=== PATIENT | male | born 1975 | race Caucasian/White ===

== ENCOUNTER → 2018-11-03 15:42 | Outpatient (CLI) | payer BC, SELFPAY ==
[2018-11-03 16:02] LABS: Appearance Urine UA CLEAR; Bilirubin Urine UA NEGATIVE (NEGATIVE); Color Urine UA YELLOW; Glucose Urine UA NEGATIVE (Negative); Ketones Urine UA NEGATIVE (NEGATIVE); Leukocyte Esterase Urine UA NEGATIVE (NEGATIVE); Nitrite Urine UA NEGATIVE (Negative); Occult Blood Urine UA NEGATIVE (Negative); Protein Urine UA NEGATIVE (Negative); Specific Gravity Urine UA 1.015 (1.000-1.035); Urobilinogen Urine UA 0.2 E.U./dL (0.2); pH Urine UA 5.5 (4.5-8.0)
== END ==
PROVIDERS: PCP Nurse Practitioner; Visit Provider Specialist
DX: N45.1 Epididymitis (principal)
CPT/HCPCS: 81003

== ENCOUNTER → 2018-11-11 10:37 | Outpatient (CLI) | payer BC, SELFPAY ==
--- NOTE | 2018-11-11 10:48 | DI.CT.S_ITS ---
PROCEDURE: CT PEL WO CON INDICATIONS: Bilateral groin pain left greater than right rule out hernia TECHNIQUE: After the administration of oral contrast, 5 mm thick sections acquired from the iliac crests to the symphysis. 5 mm coronal and sagittal reformats were then performed. For radiation dose reduction, the following was used: automated exposure control, adjustment of mA and/or kV according to patient size. Please note patient did not perform Valsalva during study. COMPARISON: None. FINDINGS: Image quality: Excellent. Peritoneum and bowel: Visualized bowel loops demonstrate normal wall thickness and caliber. There is colonic diverticulosis without acute diverticulitis. No free fluid or air. Genitourinary: Bladder wall thickness is normal. There are nonspecific coarse calcifications within the left aspect of the prostate. Nodes and vessels: No iliac, pelvic, or inguinal adenopathy by size criteria. Iliac vessels demonstrate normal size. Bones: No suspicious bony lesions. Pelvic ring and hip joints appear intact. Miscellaneous: No inguinal or femoral hernias identified. IMPRESSION: 1. No inguinal or femoral hernia identified. Evaluation slightly limited by absence of Valsalva maneuver. 2. No definite acute abnormality identified to correlate with patient's pain symptoms. Dictated by: Danny Farnsworth M.D. on 11/11/2018 at 13:38 Approved by: Danny Farnsworth M.D. on 11/11/2018 at 13:41
== END ==
PROVIDERS: PCP Nurse Practitioner; Visit Provider Specialist
DX: R10.32 Left lower quadrant pain (principal)
CPT/HCPCS: 72192

== ENCOUNTER → 2018-11-18 07:43 | Outpatient (CLI) | payer BC, SELFPAY ==
--- NOTE | 2018-11-18 07:45 | DI.US.S_ITS ---
PROCEDURE: US SCROTUM INDICATIONS: TESTICULAR PAIN TECHNIQUE: Real-time scanning was performed of the scrotum and testicles, with image documentation. Color and pulse Doppler interrogation was performed of both testicles. COMPARISON: None. FINDINGS: Right: Testicle is normal in size at 4.2 x 3.1 x 2.3 cm, and homogenous in echotexture. Epididymis is normal in overall size and morphology. No hydrocele or varicoceles. Overlying scrotal skin is normal in thickness. Left: Testicle is normal in size at 4.4 x 2.9 x 2.3 cm, and homogeneous in echotexture. Epididymis is normal in overall size and morphology. There is a small left-sided hydrocele. A small to moderate left-sided varicocele is seen. Overlying scrotal skin is normal in thickness. Doppler: Color and pulse Doppler demonstrate normal arterial flow in both testicles. However, there is increased blood flow seen within the left testicle compared to the right. IMPRESSION: Small moderate left-sided varicocele. The vascular flow to each testicle is considered to be within normal limits. However, the vascular flow to the left testicle is more prominent than to the right testicle. Dictated by: Nuno Dill M.D. on 11/18/2018 at 9:05 Approved by: Nuno Dill M.D. on 11/18/2018 at 9:08
== END ==
PROVIDERS: PCP Nurse Practitioner; Visit Provider Nurse Practitioner
DX: I86.1 Scrotal varices (principal)
CPT/HCPCS: 76870

== ENCOUNTER → 2019-01-22 07:40 | Outpatient (CLI) | payer BC, SELFPAY ==
--- NOTE | 2019-01-22 07:43 | DI.MRI.S_ITS ---
PROCEDURE: MR LUMBAR SPINE WO CON INDICATIONS: Back Pain TECHNIQUE: Noncontrast sagittal T1 spin echo and T2 fast echo, sagittal STIR, axial T1 and T2 fast spin echo through the lumbar spine. In cases with scoliosis, additional coronal T2 fast spin echo may be performed. COMPARISON: None. FINDINGS: Image quality: Excellent. Alignment and Curvature: There is normal bony alignment. Bone Marrow: Marrow is of normal overall signal. No acute vertebral body compression fractures. Spinal Cord: Conus medullaris terminates at the L1 level. Visualized cord demonstrates normal signal and size. Paraspinous Soft Tissues: No paravertebral masses. L1-L2: Loss of disc signal. Mild, diffuse disc bulge. No central stenosis. No neural foraminal narrowing. No neural compression. L2-L3: Loss of disc signal and height. Mild, diffuse disc bulge. No central stenosis. No neural foraminal narrowing. No neural compression. Fissure noted in the posterior annulus. L3-L4: Loss of disc signal. Mild, diffuse disc bulge. No central stenosis. Mild bilateral neural foraminal narrowing. No neural compression. Fissure noted in the posterior annulus. L4-L5: Loss of disc signal. Mild, diffuse disc bulge. No central stenosis. Mild bilateral neural foraminal narrowing. No neural compression. L5-S1: Loss of disc signal. Mild, diffuse disc bulge. No central stenosis. Mild left neural foraminal narrowing. No neural compression. IMPRESSION: 1. Multilevel degenerative disc disease. 2. No central stenosis. 3. Mild bilateral L3-L4 and L4-L5 neural foraminal narrowing. Mild left L5-S1 neural foraminal narrowing. 4. No neural compression. 5. L2-L3 and L3-L4 disc annular fissures. Dictated by: Christina Johansen MD, PhD on 01/22/2019 at 12:25 Approved by: Christina Johansen MD, PhD on 01/22/2019 at 12:36
== END ==
PROVIDERS: PCP Nurse Practitioner; Visit Provider Nurse Practitioner
DX: M54.9 Dorsalgia, unspecified (principal); M51.36 Other intervertebral disc degeneration, lumbar region; M48.061 Spinal stenosis, lumbar region without neurogenic claudication; M79.2 Neuralgia and neuritis, unspecified
CPT/HCPCS: 72148

== ENCOUNTER → 2019-02-02 11:21 | Outpatient (CLI) | payer BC, SELFPAY ==
[2019-02-02 13:21] LABS: Add Manual Diff / Slide Review NO; Basophils Absolute Auto 100 /uL (0-100); Eosinophils Absolute Auto 100 /uL (0-450); Eosinophils Percent Auto 1.1 % (2-4); Hematocrit 41.6 % (41-53); Hemoglobin 14.7 g/dL (13.5-17.5); Lymphocytes Absolute Auto 2900 /uL (1100-4500); Lymphocytes Percent Auto 37.6 % (25-40); Mean Corpuscular HGB Conc 35.5 % (30-36); Mean Corpuscular Hemoglobin 31.5 PG (26-34); Mean Corpuscular Volume 88.8 fL (80-100); Monocytes Absolute Auto 600 /uL (0-900); Monocytes Percent Auto 7.3 % (3-14); Neutrophils Absolute Auto 4100 /uL (1500-7000); Platelet Count 205 X10^3/uL (150-400); Red Blood Cell Count 4.68 X10^6/uL (4.5-5.9); Red Cell Distribution Width 12.7 % (11.6-14.8); White Blood Cell Count 7.7 X10^3/uL (4.5-11.0)
[2019-02-02 13:50] LABS: Alanine Aminotransferase 35 IU/L (<50); Albumin Globulin Ratio 1.9 (1.0-2.8); Alkaline Phosphatase 43 U/L (38-126); Aspartate Aminotransferase 28 IU/L (17-59); BUN Creatinine Ratio 17.1 (6-22); Bilirubin Total 0.7 mg/dL (0.2-1.3); Blood Urea Nitrogen 12 mg/dL (9-20); Calcium 9.9 mg/dL (8.4-10.2); Carbon Dioxide 29 mmol/L (22-32); Chloride 102 mmol/L (98-107); Cholesterol 264 mg/dL (140-199); Estimated Glomerular Filt Rate > 60.0 mL/min (>60); Globulin 2.6 g/dL (1.7-4.1); Glucose 89 mg/dL (70-100); HDL Cholesterol 43 mg/dL (40-60); HEMOLYSIS < 15 (0-50); LDL Cholesterol Calculated 179 mg/dL (<100); Potassium 4.4 mmol/L (3.4-5.1); Sodium 141 mmol/L (137-145); Total Protein 7.6 g/dL (6.3-8.2); Triglycerides 211 mg/dL (35-150)
[2019-02-02 14:17] LABS: TSH w/ Reflex to FT4 1.91 uIU/mL (0.47-4.68)
[2019-02-02 14:17] LABS: Prostate Specific Antigen Scrn 1.29 ng/mL (0.1-4.0)
== END ==
PROVIDERS: PCP Nurse Practitioner; Visit Provider Nurse Practitioner
DX: Z00.00 Encounter for general adult medical examination without abnormal findings (principal); Z12.5 Encounter for screening for malignant neoplasm of prostate
CPT/HCPCS: 36415; 80053; 80061; 84443; 85025; G0103

== ENCOUNTER → 2019-03-05 16:12 | Outpatient (CLI) | payer BC, SELFPAY ==
--- NOTE | 2019-03-05 16:13 | DI.MRI.S_ITS ---
PROCEDURE: MR THORACIC SPINE WO CON INDICATIONS: Back Pain TECHNIQUE: Noncontrast sagittal T1 spine echo and T2 fast spin echo, sagittal STIR, axial T1 and T2 fast spin echo through the thoracic spine. COMPARISON: [facility], , MR LUMBAR SPINE WO CON, 01/22/2019, 7:59. FINDINGS: Image quality: Excellent. Alignment and Curvature: There is normal bony alignment. Bone Marrow: Marrow is of normal overall signal. No acute vertebral body compression fractures. Spinal Cord: Visualized spinal cord is normal in size and signal along the thoracic spine but a portion of the low cervical spine is included on this study and there is moderately severe spinal stenosis at C5-6, C6-7, and to a mild degree at C7-T1. Along the thoracic spine there is a mild degree of degenerative disc disease best seen at the mid thoracic spine without associated spinal or foraminal stenosis. A disc herniation is not seen. Paraspinous Soft Tissues: No paravertebral masses. Miscellaneous: On axial images, central canal and foramina appear widely patent at all scanned levels. IMPRESSION: As noted above a portion of the low cervical spine was included on the study and there is moderately severe spinal stenosis from C5-6 through C6-7. Given the degree of degenerative change is found in this area a dedicated cervical MR study may be warranted. Along the thoracic spine there is a mild degree of degenerative disc disease as indicated by mild disc height reduction and disc desiccation but without associated significant spinal or foraminal stenosis. No disc herniation is found. Dictated by: Ten Abel M.D. on 03/08/2019 at 8:24 Approved by: Ten Abel M.D. on 03/08/2019 at 8:31
== END ==
PROVIDERS: PCP Nurse Practitioner; Visit Provider Nurse Practitioner
DX: M54.9 Dorsalgia, unspecified (principal); M51.34 Other intervertebral disc degeneration, thoracic region; M48.02 Spinal stenosis, cervical region; M48.03 Spinal stenosis, cervicothoracic region; M79.2 Neuralgia and neuritis, unspecified
CPT/HCPCS: 72146

== ENCOUNTER → 2019-04-19 14:02 | Outpatient (CLI) | payer BC, SELFPAY ==
--- NOTE | 2019-04-19 14:04 | DI.MRI.S_ITS ---
PROCEDURE: MR CERVICAL SPINE WO CON INDICATIONS: neck, shoulder, scapular, arm, and hand pain, finger numbnes TECHNIQUE: Noncontrast sagittal T1 spin echo and T2 fast spin echo, sagittal STIR, foraminal oblique sagittal T2 fast spin echo, and axial gradient echo or T2 fast spin echo through the cervical spine. COMPARISON: None. FINDINGS: Image quality: Excellent. Alignment and Curvature: There is normal bony alignment. Bone Marrow: Marrow demonstrates normal overall signal. Spinal Cord: Visualized spinal cord has normal size and signal. No cerebellar tonsillar herniation. Paraspinous Soft Tissues: No paravertebral masses. Prevertebral soft tissues are normal in thickness. C2-C3: Normal appearance except for a minimal midline posterior disc bulge without spinal or foraminal stenosis. C3-C4: The degenerative changes at this level are mild, the AP dimension of the spinal canal is congenitally narrowed with effacement of CSF from the anterior thecal sac but without cord distortion. No foraminal stenosis, only very mild anterior spinal stenosis. C4-C5: Moderately severe degenerative changes with a broad-based posterior transverse disc bulge effacing CSF from the anterior thecal sac and mildly flattening the anterior cord margin. Facet and uncovertebral osteoarthritis is moderate on the left and moderately severe on the right with potential for significant right-sided C5 nerve root impingement. C5-C6: Moderately severe to severe degenerative disc disease with narrowing of the AP dimension of the spinal canal, by a posterior broad-based transverse disc bulge with accentuation of bulging at the midline. The anterior cord is mildly flattened, and concave in its contour adjacent to the focal disc bulge noted above. Asymmetric right greater than left facet and uncovertebral osteoarthritis produces moderately severe right and mild to moderate left foraminal stenosis. Asymmetric impingement on the course of the right C6 nerve root would be expected. C6-C7: Moderately severe degenerative disc disease, posterior transverse broad-based mild disc bulge. Facet osteoarthritis with uncovertebral degeneration is greater on the left than the right mild to moderate degree of left-sided foraminal stenosis and potential for impingement on the course of the left C7 nerve root. C7-T1: Chronic degenerative disc disease is mild at this level, foraminal stenosis is not present. No significant spinal or foraminal nerve root impingement. IMPRESSION: Multilevel degenerative disc disease and facet osteoarthritis with uncovertebral degenerative change also contributing to the presence of both symmetric and asymmetric foraminal stenosis and spinal stenosis as discussed in detail by level and the body of the report above. No disc herniation is found, no prior trauma is seen. The AP dimension of the spinal canal is congenitally mildly narrowed contributing to the spinal stenosis noted. Dictated by: Ten Abel M.D. on 04/19/2019 at 15:58 Approved by: Ten Abel M.D. on 04/19/2019 at 16:03
== END ==
PROVIDERS: PCP Nurse Practitioner; Visit Provider Nurse Practitioner
DX: M50.022 Cervical disc disorder at C5-C6 level with myelopathy (principal); M48.02 Spinal stenosis, cervical region; M47.12 Other spondylosis with myelopathy, cervical region; R20.0 Anesthesia of skin; M25.511 Pain in right shoulder; M25.512 Pain in left shoulder; M89.8X1 Other specified disorders of bone, shoulder
CPT/HCPCS: 72141

== ENCOUNTER → 2020-04-07 09:58 | Outpatient (CLI) | payer BC, SELFPAY ==
[2020-04-07 10:46] LABS: Add Manual Diff / Slide Review NO; Basophils Absolute Auto 0 /uL (0-100); Basophils Percent Auto 0.6 % (0-2); Eosinophils Absolute Auto 100 /uL (0-450); Eosinophils Percent Auto 0.9 % (2-4); Hematocrit 41.2 % (41-53); Hemoglobin 14.1 g/dL (13.5-17.5); Lymphocytes Absolute Auto 2100 /uL (1100-4500); Lymphocytes Percent Auto 37.3 % (25-40); Mean Corpuscular HGB Conc 34.2 % (30-36); Mean Corpuscular Hemoglobin 30.2 PG (26-34); Mean Corpuscular Volume 88.3 fL (80-100); Monocytes Absolute Auto 400 /uL (0-900); Monocytes Percent Auto 6.5 % (3-14); Neutrophils Absolute Auto 3100 /uL (1500-7000); Neutrophils Percent Auto 54.7 % (50-75); Platelet Count 181 X10^3/uL (150-400); Red Blood Cell Count 4.66 X10^6/uL (4.5-5.9); Red Cell Distribution Width 12.7 % (11.6-14.8); White Blood Cell Count 5.7 X10^3/uL (4.5-11.0)
[2020-04-07 11:04] LABS: Alanine Aminotransferase 29 IU/L (<50); Albumin 4.5 g/dL (3.5-5.0); Albumin Globulin Ratio 1.6 (1.0-2.8); Alkaline Phosphatase 48 U/L (38-126); Aspartate Aminotransferase 25 IU/L (17-59); BUN Creatinine Ratio 16.9 (6-22); Bilirubin Total 0.6 mg/dL (0.2-1.3); Blood Urea Nitrogen 11 mg/dL (9-20); Calcium 9.2 mg/dL (8.4-10.2); Carbon Dioxide 29 mmol/L (22-32); Chloride 103 mmol/L (98-107); Cholesterol 274 mg/dL (140-199); Estimated Glomerular Filt Rate > 60.0 mL/min (>60); Globulin 2.8 g/dL (1.7-4.1); Glucose 97 mg/dL (70-100); HDL Cholesterol 43 mg/dL (40-60); HEMOLYSIS < 15 (0-50); LDL Cholesterol Calculated 174 mg/dL (<100); Potassium 4.1 mmol/L (3.4-5.1); Sodium 137 mmol/L (137-145); Total Protein 7.3 g/dL (6.3-8.2); Triglycerides 283 mg/dL (35-150)
[2020-04-07 11:17] LABS: Free T3, Triiodothyronine Free 3.73 pg/mL (2.77-5.27); Free T4, Direct Thyroxine 0.71 ng/dL (0.78-2.19)
[2020-04-07 11:31] LABS: Thyroid Stimulating Hormone 1.62 uIU/mL (0.47-4.68)
== END ==
PROVIDERS: PCP Nurse Practitioner; Referring Provider Nurse Practitioner; Visit Provider Nurse Practitioner
DX: Z00.00 Encounter for general adult medical examination without abnormal findings (principal); E66.01 Morbid (severe) obesity due to excess calories; E78.1 Pure hyperglyceridemia; E78.5 Hyperlipidemia, unspecified; F41.8 Other specified anxiety disorders; I10 Essential (primary) hypertension
CPT/HCPCS: 36415; 80053; 80061; 84439; 84443; 84481; 85025; 86900; 86901

== ENCOUNTER → 2022-10-23 07:50 | Outpatient (CLI) | payer OTHER, SELFPAY ==
[2022-10-23 08:42] LABS: Add Manual Diff / Slide Review NO; Basophils Absolute Auto 0 /uL (0-100); Basophils Percent Auto 0.4 % (0-2); Eosinophils Absolute Auto 100 /uL (0-450); Hematocrit 40.1 % (41-53); Hemoglobin 14.3 g/dL (13.5-17.5); Lymphocytes Absolute Auto 2500 /uL (1100-4500); Lymphocytes Percent Auto 38.3 % (25-40); Mean Corpuscular HGB Conc 35.5 % (30-36); Mean Corpuscular Hemoglobin 31.4 PG (26-34); Mean Corpuscular Volume 88.5 fL (80-100); Monocytes Absolute Auto 400 /uL (0-900); Neutrophils Absolute Auto 3500 /uL (1500-7000); Neutrophils Percent Auto 54.3 % (50-75); Platelet Count 180 X10^3/uL (150-400); Red Blood Cell Count 4.53 X10^6/uL (4.5-5.9); Red Cell Distribution Width 12.6 % (11.6-14.8); White Blood Cell Count 6.5 X10^3/uL (4.5-11.0)
[2022-10-23 09:12] LABS: Alanine Aminotransferase 24 IU/L (<50); Albumin 4.7 g/dL (3.5-5.0); Albumin Globulin Ratio 1.7 (1.0-2.8); Alkaline Phosphatase 51 U/L (38-126); Aspartate Aminotransferase 28 IU/L (17-59); BUN Creatinine Ratio 19.7 (6-22); Bilirubin Total 0.9 mg/dL (0.2-1.3); Blood Urea Nitrogen 13 mg/dL (9-20); Calcium 9.1 mg/dL (8.4-10.2); Carbon Dioxide 24 mmol/L (22-32); Chloride 106 mmol/L (98-107); Cholesterol 222 mg/dL (140-199); Estimated Glomerular Filt Rate > 60 mL/min (>60); Globulin 2.8 g/dL (1.7-4.1); Glucose 98 mg/dL (70-100); HDL Cholesterol 39 mg/dL (40-60); HEMOLYSIS 36 (0-50); LDL Cholesterol Calculated 135 mg/dL (<100); Potassium 4.2 mmol/L (3.4-5.1); Sodium 138 mmol/L (137-145); Total Protein 7.5 g/dL (6.3-8.2); Triglycerides 238 mg/dL (35-150)
[2022-10-23 09:24] LABS: Free T3, Triiodothyronine Free 4.41 pg/mL (2.77-5.27)
[2022-10-23 09:38] LABS: Thyroid Stimulating Hormone 2.35 uIU/mL (0.47-4.68)
[2022-10-23 09:45] LABS: Creatinine Urine Random 145.2 mg/dL
[2022-10-23 09:49] LABS: Microalbumi Creatinin Ratio Ur 6.1 ug/mg CR (<30); Microalbumin Urine Random 0.9 mg/dL (0-1.6)
[2022-10-23 13:36] LABS: HIV 1 & 2 Ab/Ag 4th Gen Combo NEGATIVE (NEGATIVE); Hep C Virus Ab w/Reflex Quant NEGATIVE s/c (NEGATIVE)
== END ==
PROVIDERS: PCP Nurse Practitioner; Referring Provider Nurse Practitioner; Visit Provider Nurse Practitioner
DX: Z00.00 Encounter for general adult medical examination without abnormal findings (principal); Z11.4 Encounter for screening for human immunodeficiency virus [HIV]; Z11.59 Encounter for screening for other viral diseases
CPT/HCPCS: 36415; 80053; 80061; 82043; 82570; 84439; 84443; 84481; 85025; 86803; 87389

== ENCOUNTER → 2024-03-23 15:06 | Outpatient (CLI) | payer BC, SELFPAY ==
[2024-03-23 16:19] LABS: Hematocrit 45.1 % (41-53); Hemoglobin 15.3 g/dL (13.5-17.5); Mean Corpuscular Hemoglobin 30.8 PG (26-34); Mean Corpuscular Volume 90.4 fL (80-100); Platelet Count 219 X10^3/uL (150-400); Red Blood Cell Count 4.98 X10^6/uL (4.5-5.9); Red Cell Distribution Width 12.9 % (11.6-14.8); White Blood Cell Count 9.2 X10^3/uL (4.5-11.0)
[2024-03-23 16:27] LABS: Hemoglobin A1C% w Est Avg Glu 5.3 % (4.0-6.0)
[2024-03-23 16:38] LABS: Alanine Aminotransferase 54 IU/L (<50); Albumin 4.8 g/dL (3.5-5.0); Albumin Globulin Ratio 1.5 (1.0-2.8); Alkaline Phosphatase 53 U/L (38-126); Aspartate Aminotransferase 43 IU/L (17-59); BUN Creatinine Ratio 16.1 (6-22); Bilirubin Total 0.9 mg/dL (0.2-1.3); Blood Urea Nitrogen 14 mg/dL (9-20); Calcium 9.8 mg/dL (8.4-10.2); Carbon Dioxide 29 mmol/L (22-32); Chloride 102 mmol/L (98-107); Cholesterol 312 mg/dL (140-199); Estimated Glomerular Filt Rate > 60 mL/min (>60); Globulin 3.2 g/dL (1.7-4.1); Glucose 83 mg/dL (70-100); HDL Cholesterol 63 mg/dL (40-60); HEMOLYSIS < 15 (0-50); LDL Cholesterol Calculated 181 mg/dL (<100); Potassium 4.5 mmol/L (3.4-5.1); Sodium 137 mmol/L (137-145); Triglycerides 338 mg/dL (35-150)
== END ==
LOC: LAB 15:07
PROVIDERS: PCP Family Medicine; Referring Provider Family Medicine; Visit Provider Family Medicine
DX: E66.01 Morbid (severe) obesity due to excess calories (principal); E78.2 Mixed hyperlipidemia; Z68.41 Body mass index [BMI] 40.0-44.9, adult
CPT/HCPCS: 36415; 80053; 80061; 83036; 85027

== ENCOUNTER → 2024-04-30 09:49 | Day surgery (SDC) | payer BC, SELFPAY ==
[2024-04-30] MEDS: LACTATED RINGERS 1,000 ML 100 ML IV (10:28)
[2024-04-30 10:41] VITALS: BP 145/92; PULSE 58; RESP 16; TEMP 36.6; O2SAT 99
--- NOTE | 2024-04-30 10:54 | PM.HP.IH.1 ---
History of Present Illness History of Present Illness Date Patient Seen: 04/30/24 Time Patient Seen: 10:55 Chief complaint: SDC Narrative: 49-year-old white male presents for initial screening colonoscopy. No changes in bowel habits. [facility] Medical History (Updated 04/30/24 @ 10:56 by Javier Junior MD) Colon cancer screening (04/30/24) Mixed hyperlipidemia Bilateral arm pain Segmental and somatic dysfunction of sacral region Pelvic somatic dysfunction Segmental and somatic dysfunction of abdomen and other regions Lumbar region somatic dysfunction Segmental and somatic dysfunction of thoracic region Cervical somatic dysfunction Cervical radiculopathy Low back pain with sciatica Cervicalgia Psoriasis Shoulder pain Foot pain Encounter for smoking cessation counseling History of tobacco abuse Obesity (BMI 35.0-39.9 without comorbidity) Surgical History H/O cervical spine surgery Anesthesia [place] teeth removed (~1995) Family History Grandfather History of heart disease Hypertension Grandmother Cancer Diabetes mellitus History of heart disease Hypertension Social History marital status: household members: spouse and family occupational status: employed Smoking Status: Former smoker alcohol intake: current substance use type: does not use Meds Home Medications and Allergies Home Medications Medication Instructions Recorded Confirmed Type acetaminophen 500 mg tablet 500 mg PO TID PRN 09/23/19 03/23/24 History (Acetaminophen Extra Strength) cholecalciferol (vitamin D3) 125 12.5 mcg PO DAILY 04/07/20 03/23/24 History mcg/mL (5,000 unit/mL) oral drops multivitamin 1 tab PO DAILY 04/07/20 03/23/24 History omega-3 fatty acids 1,000 mg 1,000 mg PO DAILY 04/07/20 03/23/24 History capsule (Fish Oil Concentrate) CBD/THC PO 10/30/22 03/23/24 History gabapentin 300 mg capsule See Rx Instructions .Route 03/23/24 03/23/24 Rx .COMPLEX #90 caps methocarbamol 750 mg tablet 750 mg PO Q8H PRN muscle spasms 03/23/24 03/23/24 Rx #90 tabs rosuvastatin 20 mg tablet (Crestor) 20 mg PO DAILY #90 tabs 03/30/24 03/30/24 Rx sodium,potassium,mag sulfates 17.5 See Rx Instructions PO .COMPLEX 03/31/24 Rx gram-3.13 gram-1.6 gram oral soln #354 mL (Suprep Bowel Prep Kit) Allergies Allergy/AdvReac Type Severity Reaction Status Date / Time Penicillins Allergy Verified 04/30/24 10:25 Review of Systems Review of Systems ROS: Yes All systems reviewed with the patient and are negative except as otherwise documented Exam Vital Signs (past 8 hours): - 04/30/24 10:41 Temperature 98 F Pulse Rate 58 L Respiratory Rate 16 Blood Pressure 145/92 H Pulse Oximetry 99 Oxygen Delivery Method Room Air Oxygen Delivery Method Room Air Narrative Exam Narrative: Gen: NAD, sitting comfortably in bed, appears well HEENT: Sclera are anicteric, head is normocephalic and atraumatic, trachea is midline. CV: RRR, no JVD Resp: clear to auscultation bilaterally, equal chest wall movement bilaterally Abd: soft, nontender, normoactive bowel sounds Ext: no edema, full range of motion Neuro: Cranial nerves II-XII grossly intact, no focal deficits Skin: No erythema or ecchymosis Assessment & Plan Assessment and plan (1) Colon cancer screening: Status: Acute Assessment & Plan narrative: Patient presents for colonoscopy Risks, benefits, alternatives to colonoscopy explained, including but not limited to bowel perforation or other serious complication requiring surgery at less than 1 in 5000 colonoscopies, abdominal pain, cramping or bleeding and less than 1% of colonoscopies, and the chances that we find a diagnosis that would require further intervention of about 2%. Patient agrees to proceed. Time-Based Coding :: [TOTAL MINUTES] spent with patient and on the chart (including review of chart, obtaining history, exam, reviewing outside data, placing orders, documenting exam and treatment plan, and counseling patient) on [DATE]. 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
--- NOTE | 2024-04-30 11:14 | P.OP.COLON_ITS ---
Operative Date/Time/Diagnoses Date of procedure: 04/30/24 Time of procedure: 11:14 Pre-op diagnosis: Colon screening Post-op diagnosis: same Procedure & Clinicians Study performed: Colonoscopy Same procedure as scheduled: Yes Indications: Colon screening Surgeon: Javier Junior Procedure Notes SCOAP/Timeout: Performed Procedure in detail: Time-out was performed. Mac was induced. Patient was placed in left lateral d ecubitus position. The perineum was inspected without any gross abnormality. Lubricated pediatric colonoscope was inserted and advanced to the cecum. The terminal ileum was intubated. The colonoscope was withdrawn slowly inspecting the circumference of the colon. Very small polyps may have been missed, prep quality was adequate. Retroflexed view of the rectum showed small, non prolapsed nonbleeding internal hemorrhoids. The scope was withdrawn the patient was taken to PACU in good condition. Scope withdrawal time: 6 Sedation minutes: 12 Specimen(s): none sent Complications: none Post-procedure Recommendations: Colonoscopy in 10 years Follow up: as needed Disposition: PACU
[2024-04-30 11:16] VITALS: BP 92/61; PULSE 63; RESP 14; TEMP 36.2; O2SAT 97
[2024-04-30 11:24] VITALS: BP 109/72; PULSE 62; RESP 12; O2SAT 96
[2024-04-30 11:28] VITALS: BP 117/72; PULSE 62; RESP 16; TEMP 36.7; O2SAT 97
[2024-04-30 11:31] VITALS: BP 107/71; PULSE 58; RESP 12; O2SAT 98
== END | disposition home or self-care (01) ==
PROVIDERS: PCP Family Medicine; Referring Provider Surgery; Visit Provider Surgery
PROC: 0DJD8ZZ Inspection of Lower Intestinal Tract, Via Natural or Artificial Opening Endoscopic (ICD-10-PCS; CPT 45378; principal; 2024-04-30 11:15)
DX: Z12.11 Encounter for screening for malignant neoplasm of colon (principal); K64.8 Other hemorrhoids
CPT/HCPCS: 45378; J2704

== ENCOUNTER → 2024-06-25 09:42 | Outpatient (CLI) | payer BC, SELFPAY ==
--- NOTE | 2024-06-25 09:45 | DI.RAD.S_ITS ---
PROCEDURE: XR KNEE LT 3V INDICATIONS: bilat pain TECHNIQUE: 3 views of the knee were acquired. COMPARISON: None. FINDINGS: Bones: No fractures or dislocations. No suspicious bony lesions. Moderate medial and mild to moderate lateral tibiofemoral and moderate patellofemoral compartment narrowing with associated osteophytosis. Soft tissues: Trace joint effusion. No suspicious soft tissue calcifications. IMPRESSION: KL grade 2 tricompartmental osteoarthritis without evidence of acute osseous abnormality. Trace joint effusion. Dictated by: Dalton Monroe M.D. on 06/25/2024 at 22:14 Approved by: Dalton Monroe M.D. on 06/25/2024 at 22:36
--- NOTE | 2024-06-25 09:45 | DI.RAD.S_ITS ---
PROCEDURE: XR KNEE RT 3V INDICATIONS: rt knee pain TECHNIQUE: 3 views of the knee were acquired. COMPARISON: None. FINDINGS: Bones: No fractures or dislocations. No suspicious bony lesions. Moderate medial and lateral tibiofemoral and moderate to severe patellofemoral compartment narrowing with associated osteophytosis. Soft tissues: No joint effusion. No suspicious soft tissue calcifications. IMPRESSION: KL grade 2 tricompartmental osteoarthritis without evidence of acute osseous abnormality. Dictated by: Dalton Monroe M.D. on 06/25/2024 at 22:40 Approved by: Dalton Monroe M.D. on 06/25/2024 at 22:43
--- NOTE | 2024-06-25 09:45 | DI.RAD.S_ITS ---
PROCEDURE: XR SHOULDER RT MIN 2V INDICATIONS: rt shoulder pain TECHNIQUE: 3 views of the shoulder were acquired. COMPARISON: None. FINDINGS: Bones: No fractures or dislocations. The humeral head is mildly high-riding. There is mild to moderate glenohumeral joint space narrowing and marginal osteophytosis. Moderate hypertrophic acromioclavicular arthropathy noted. No suspicious bony lesions. Visualized ribs appear intact. Soft tissues: No suspicious soft tissue calcifications. IMPRESSION: Degenerative change of the glenohumeral and acromioclavicular joints without evidence of acute bony abnormality. Dictated by: Dalton Monroe M.D. on 06/25/2024 at 22:37 Approved by: Dalton Monroe M.D. on 06/25/2024 at 22:39
== END ==
PROVIDERS: PCP Family Medicine; Referring Provider Family Medicine; Visit Provider Family Medicine
DX: M17.0 Bilateral primary osteoarthritis of knee (principal); M25.511 Pain in right shoulder; M25.562 Pain in left knee; M25.561 Pain in right knee; G89.29 Other chronic pain
CPT/HCPCS: 73030; 73562